=== PATIENT | female | born 1945 | race Caucasian/White ===

== ENCOUNTER 2017-12-27 07:15 | Day surgery (SDC) | payer OTHER ==
[~2017-12-27] VITALS: Ht 157.5 cm; Wt 68.0 kg
[2017-12-27] MEDS ORDERED: LIPITOR40 MG PO (07:41)
[2017-12-27] MEDS ORDERED: PRILOSEC OTC20 MG PO (07:42)
[2017-12-27] MEDS ORDERED: VITAMIN D2000 UNIT PO (07:42)
[2017-12-27] MEDS ORDERED: CALCIUM + D3 E1 EACH PO (07:43)
--- NOTE | 2017-12-27 09:15 | NUR ---
12/27/17 0915 Maira Leung 0909 PATIENT ARRIVES TO PACU SLEEPING, AWAKENS WITH VERBAL STIMULI. RESP EVEN AND UNLABORED, SHALLOW WHEN SLEEPING, PATIENT FREQUENTLY ENCOURAGED TO TAKE DEEP BREATHS. ARRIVES ON OXYGEN AT 2L VIA NC, TURNED OFF ON ARRIVAL, ROOM AIR SATS 98%. PATIENT DENIES PAIN, STATES SHE DOES FEEL A LITTLE "QUEEZY," BUT WAS ALSO NAUSEATED ALL LAST NIGHT.
--- NOTE | 2017-12-27 16:43 | OR ---
[facility] [address], [place] [address] Signed DATE OF OPERATION: 12/27/2017 SURGEON: Kj Iqbal MD PREOPERATIVE DIAGNOSES: 1. Family history of colon cancer (sister, of disease at 60). 2. Diarrhea. POSTOPERATIVE DIAGNOSIS: Mild colitis, right side worse than left. PROCEDURE: Total colonoscopy to cecum with biopsies. ANESTHESIA: Intravenous sedation; fentanyl 100 mcg and Versed 5 mg. INDICATION: A 72-year-old white woman is a patient of Dr. Fox and Dr. Tnak Aragon. She has had complaints of diarrhea, which has not been disabling by any means. She underwent colonoscopy in the past by Dr. Gipson in [place] for screening which was normal. She had a sister who of colon cancer at less than 60 years of age. She does have diarrhea, but no blood per rectum. Certain foods make her symptoms worse including avocados. She is admitted at this time to undergo colonoscopy understanding the risks of bleeding, infection, and perforation. FINDINGS: The prep was good. Complete colonoscopy was undertaken to the cecum without question. There appeared to be low-grade inflammation of the colon with edema and punctate changes particularly in the cecum and to a lesser extent, the rectum. There was no evidence of polyps or diverticulosis. Biopsies were obtained. DESCRIPTION OF PROCEDURE: The patient was brought to the operating room #2, temporary endoscopy suite and placed in the lateral decubitus position, given intravenous sedation to the point of slurred speech and nystagmus. Digital rectal examination was normal. Full cardiopulmonary monitoring was maintained. The Olympus video colonoscope was passed in the rectum and manipulated throughout the colon noting inflammatory changes of the rectum to a degree and less so in the sigmoid. Electronically Signed By: KJ IQBAL MD 12/27/17 1643 PATIENT NAME: LEVI ROBERT OPERATIVE REPORT DATE OF : 45 REPORT #: [id number] PHYSICIAN: KJ IQBAL MD PCP: JUAN FOX DO REPORT IS CONFIDENTIAL AND NOT TO BE RELEASED WITHOUT AUTHORIZATION [facility] [address], [place] [address] Signed After abdominal wall stabilization, the scope was able to pass ultimately to the cecum where the ileocecal valve and appendiceal orifice were normal. There appeared to be somewhat of a mucoid surface and low-grade edema of the cecum. Biopsies were obtained. Scope was carefully withdrawn. Examination throughout undertaken showing a low-grade inflammatory change of the colon itself. Biopsies were taken upon withdrawal of the scope. There was no evidence of diverticulosis or polyps. Retroflexed view of the rectum showed internal hemorrhoidal changes as well. The scope was removed. The patient was taken to the recovery room in good condition. CONCLUDING DIAGNOSIS: Low-grade colitis, etiology uncertain at this time. PLAN: We will review her pathology reports. We will see her back in the office in the next week or two and review those results and re-evaluate her symptoms. MD BEST [place]/SIOBHAN /[id number] cc: DO Tank Ann Copies: JUAN FOX DO ~ Electronically Signed By: KJ IQBAL MD 12/27/17 1643 PATIENT NAME: LEVI ROBERT OPERATIVE REPORT DATE OF : 45 REPORT #: [id number] PHYSICIAN: KJ IQBAL MD PCP: JUAN FOX DO REPORT IS CONFIDENTIAL AND NOT TO BE RELEASED WITHOUT AUTHORIZATION
== END 2017-12-27 09:40 | disposition home or self-care (01) ==
LOC: DS 07:15 → OPS 07:15 → DS 08:30 → OPS 08:30
PROVIDERS: Surgery
PROC: 0DBN8ZX Excision of Sigmoid Colon, Via Natural or Artificial Opening Endoscopic, Diagnostic (ICD-10-PCS; 2017-12-27)
PROC: 0DBP8ZX Excision of Rectum, Via Natural or Artificial Opening Endoscopic, Diagnostic (ICD-10-PCS; 2017-12-27)
PROC: 0DBH8ZX Excision of Cecum, Via Natural or Artificial Opening Endoscopic, Diagnostic (ICD-10-PCS; principal; 2017-12-27 08:30)
DX: K52.9 Noninfective gastroenteritis and colitis, unspecified (principal); K21.0 Gastro-esophageal reflux disease with esophagitis; Z80.0 Family history of malignant neoplasm of digestive organs; Z98.890 Other specified postprocedural states
CPT/HCPCS: 99153; G0500; J2250; J3010; J7120